=== PATIENT | female | born 1945 | race Caucasian/White ===

== ENCOUNTER 2020-09-06 16:54 | Inpatient (IN) | payer OTHER ==
[~2020-09-06] VITALS: Ht 160 cm; Wt 56.7 kg
[2020-09-06] MEDS ORDERED: TOPROL XL25 M1 PO (17:24)
[2020-09-06] MEDS ORDERED: CANDESARTAN CIL32 MG PO (17:24)
== END 2020-09-11 10:10 | disposition home or self-care (01) | DRG 282 ==
LOC: ER 16:54 → MEDJ 09-07 09:57 → MEDI 09-07 14:35
PROVIDERS: ADMIT Internal Medicine; ATTEND Internal Medicine
PROC: 4A12X4Z Monitoring of Cardiac Electrical Activity, External Approach (ICD-10-PCS; principal; 2020-09-07)
DX: I97.89 Other postprocedural complications and disorders of the circulatory system, not elsewhere classified (principal); I21.4 Non-ST elevation (NSTEMI) myocardial infarction; I10 Essential (primary) hypertension; I25.10 Atherosclerotic heart disease of native coronary artery without angina pectoris; Z95.5 Presence of coronary angioplasty implant and graft; Y83.4 Other reconstructive surgery as the cause of abnormal reaction of the patient, or of later complication, without mention of misadventure at the time of the procedure
CPT/HCPCS: 71275